=== PATIENT | female | born 1995 | race Caucasian/White ===

== ENCOUNTER 2021-08-29 18:10 | Emergency (ER) | payer OTHER ==
[~2021-08-29] VITALS: Ht 160 cm; Wt 74.8 kg
[2021-08-29 18:21] VITALS: BP 126/76
--- NOTE | 2021-08-29 18:45 | NUR ---
PROCESS TECH AT BEDSIDE FOR XRAY.
[2021-08-29] MEDS ORDERED: IBUP-1955 PO (19:50)
--- NOTE | 2021-08-29 19:59 | NUR ---
Patient discharged to home in stable condition. Written and verbal after care instructions given. Patient verbalizes understanding of instruction.Pt ambulatory with an aide of crutches.
== END 2021-08-29 20:00 | disposition home or self-care (01) ==
LOC: ER 18:33
DX: M25.561 Pain in right knee (principal); J45.909 Unspecified asthma, uncomplicated; Z79.1 Long term (current) use of non-steroidal anti-inflammatories (NSAID); W11.XXXA Fall on and from ladder, initial encounter; Y93.89 Activity, other specified; Y92.89 Other specified places as the place of occurrence of the external cause; Y99.8 Other external cause status
CPT/HCPCS: 73564-TC